=== PATIENT | male | born 1930 | race Caucasian/White ===

== ENCOUNTER 2017-02-06 13:17 | Inpatient (IN) | payer MEDICARE, BC ==
[~2017-02-06] VITALS: Ht 160 cm; Wt 105.7 kg
--- NOTE | ~2017-02-06 | ECH ---
Transthoracic Echocardiography Report (TTE) Demographics Patient Name Froylan PRYOR Date of Study 02/07/2017 Patient Number [id number] Visit Number [id number] Date of 1930 Room Number 421 Accession Number [id number] Gender Male Age 86 year(s) Referring Jorge Pepe Balance Screwhead Polisher Bebe Estrada Physician Landy Sommers MD RUST Physician Interpreting Landy Sommers MD Educational Aid Physician Supervising Ordering Physician Jorge Pepe MD, MD/P Nurse Stress Supervisor [place] Conclusions Summary Technically adequate exam. The estimated left ventricular ejection fraction is 60%. Mild concentric left ventricular hypertrophy. Diastolic assessment reveals Grade I diastolic dysfunction. The left atrium is severely dilated by LA volume index measurement. The interatrial septum appears aneurysmal. The right atrium is moderately dilated. No significant valvular abnormalities. Procedure Type of Study TTE procedure:Echo Complete SF. Procedure Date Date: 02/07/2017 Start: 01:41 PM Technical Quality: Adequate visualization Indications:Elevated Troponin, Shortness of breath, Congestive heart failure and Bradycardia. Appropriate Use Criteria: 9 Height: 65 inches Weight: 238 pounds BSA: 2.13 m Rhythm: Sinus bradycardia HR: 53 bpm BP: 143/58 mmHg M-Mode/2D Measurements LV Diastolic Dimension: 5.52 cm LV Systolic Dimension: 3.95 cm LV Septum Diastolic: 1.06 cm LV PW Diastolic: 1.08 cm AO Root Dimension: 3.06 cm Cardiac Output: 6.37 l/min LA Dimension: 4.62 cm Cardiac Index: 2.99 l/min*m RV Diastolic Dimension: 3.29 cm LA volume index: 67 ml/m LVOT: 2.03 cm LVOT VTI: 37.13 cm RV Base: 3.8 cm LV Stroke volume: 120.11 ml RV Mid: 2 cm LV Stroke volume index: 56.39 ml/m TAPSE: 3.2 cm TDI-S': 13 cm/s Doppler Measurements AV Peak Velocity: 2 m/s MV Peak E-Wave: 1.31 m/s AV Peak Gradient: 16 mmHg MV Peak A-Wave: 1.4 m/s AV Mean Gradient: 8.33 mmHg MV E/A Ratio: 0.93 LVOT Peak Velocity: 1.35 m/s MV P1/2t: 84.7 msec AV Area (Continuity):2.44 cm MV Deceleration Time: 261.1 msec MV Area (PHT): 2.6 cm E' Septal Velocity: 0.06 m/s PV Peak Velocity: 1.13 m/s E' Lateral Velocity: 0.07 m/s PV Peak Gradient: 5.11 mmHg A' Septal Velocity: 0.07 m/s RA Area: 24.12 cm Findings Left Ventricle The left ventricle is normal in size . Mild concentric left ventricular hypertrophy. Diastolic assessment reveals Grade I diastolic dysfunction. Right Ventricle Normal right ventricle structure and function. Left Atrium The left atrium is severely dilated by LA volume index measurement. The interatrial septum appears aneurysmal. There is no evidence of patent foramen ovale or atrial septal defect by color Doppler. Right Atrium The right atrium is moderately dilated. Mitral Valve Mild to moderate mitral annular calcification. Mild mitral regurgitation by color Doppler. Aortic Valve The aortic valve is mildly sclerotic. Tricuspid Valve Normal tricuspid valve structure and function. Mild tricuspid regurgitation by color Doppler. Insufficient jet to calculate pulmonary pressures. Pulmonic Valve Normal pulmonic valve structure and function. Trivial pulmonic valve regurgitation by color Doppler. Pericardial Effusion No evidence of pericardial effusion. Miscellaneous Visualized portions of the aortic root and ascending aorta appear normal in size. Pleural Effusion No evidence of pleural effusion. Signature
[~2017-02-06 13:17] MED LIST: ASA CHILDREN'S81 MG PO; ASPIRIN EC81 MG PO; BACTROBAN22 GM TP; CALTRATE-600 W600 MG PO; CLARITIN DPS10 MG PO; CVS GLUCOSAMIN PO; DAILY VALUE1 EACH PO; DELTASONE DPS10 MG PO; DOLOPHINE DPS10 MG PO; FLEET ENEMA133 ML PR; FLOMAX DPS0.4 MG PO; LASIX DPS40 MG PO; LINZESS145 MCG PO; LOVENOX DP30 MG/0.3 SQ; LYRICA25 MG PO; MAALOX DPS30 ML PO; MILK OF MAGNESI10 ML PO; MIRALAX PACKET17 GM PO; MIRALAX17 GM PO; MYCOSTATIN PWD15 GM TP; NEURONTIN DPS100 MG PO; NORCO 5-325 TA1 EACH PO; NORVASC DPS10 MG PO; OXY IR DPS5 MG PO; PEPCID DPS20 MG PO; RISPERIDONE PO; SENOKOT S1 TAB PO; SURFAK DPS240 MG PO; THERA-M1 EACH PO; TYLENOL DPS325 MG PO; ZOCOR DPS10 MG PO; ZYLOPRIM-DPS100 MG PO
--- NOTE | 2017-02-09 15:08 | CO ---
ADMIT: 02/06/2017 RM/LOC: 421 [facility] MR#: [id number] [address] [address] ROYAFroylan [address] [place] [address] Consultation SEX: M AGE: 86 : 1930 DATE OF CONSULTATION: 02/07/2017 ATTENDING PHYSICIAN: Rebecca Patel CONSULTING PHYSICIAN: Regan Bill MD REASON FOR CONSULTATION: Abnormal troponin, volume overload. HISTORY OF PRESENT ILLNESS: Mr. Pryor is a pleasant 86-year-old white male whom we are asked to consult on at the request of Dr. Patel for the problem of abnormal troponin and volume overload. [facility], was in for routine appointment. He mentioned something about chest pain. They noted an elevated troponin. Of note. He has also been more short of breath, volume overloaded. Feels like his blood pressure has been poorly controlled. He denies any evidence of near syncope. He has had a little bit of a weight gain. Denies any weight loss. Denies any fever, chills, cough, or cold symptoms. PAST MEDICAL HISTORY: Pertinent for a history of carotid disease, peripheral vascular disease, TIA, COPD, BPH, hypothyroidism, chronic renal insufficiency, and spinal stenosis. CURRENT MEDICATIONS: Include: 1. Aricept 10 at bedtime. 2. Aspirin 81 a day. 3. Catapres 0.1 b.i.d. 4. Cozaar 12.5 a day. 5. Iron 325 b.i.d. 6. Flomax 0.4 a day. 7. Lasix 40 mg a day. 8. Linzess 145 mcg at 7:30 in the morning. 9. Neurontin 300 mg t.i.d. 10.Pepcid 20 mg a day. 11.Risperdal 0.25 a day. 12.Senna 8.6 b.i.d. 13.Synthroid 0.088 daily. 14.Therapeutic multivitamin. 15.Zocor 10 at bedtime. 16.Zyloprim 100 a day. 17.Dulera. 18.Heparin b.i.d. 19.Duragesic patch. ALLERGIES: INCLUDE LISINOPRIL, MORPHINE, AND CELEBREX. FAMILY HISTORY: Reviewed. There is no premature history of coronary disease. SOCIAL HISTORY: He lives in [facility]. He is a nonsmoker. ADMIT: 02/06/2017 RM/LOC: 421 [facility] MR#: [id number] [address] [address] [place] [address] Consultation SEX: M AGE: 86 : 1930 REVIEW OF SYSTEMS: A full 10-point review of systems was obtained and deemed to be negative except the pertinently dictated in HPI. PHYSICAL EXAMINATION: Today: VITAL SIGNS: Blood pressure is 143/58 with a pulse of 53, temp 96.9, his weight is 233 pounds. GENERAL: He is a pleasant, well-nourished, well-developed white male, in no acute distress. Alert and oriented x3. NECK: Shows brisk carotid upstrokes. No JVD or bruit. CHEST: Clear. HEART: Regular. ABDOMEN: Soft. EXTREMITIES: Showed no cyanosis, clubbing, with 2+ pretibial edema. MUSCULOSKELETAL: Normal. NEUROLOGIC: Normal. SKIN: [place], warm, and dry with some venous insufficiency changes in his lower extremities. LABORATORY AND ANCILLARY DATA: Chest x-ray notes cardiomegaly with some pulmonary edema. His labs note a potassium of 5.5, chloride 112, sodium 143, BUN of 42, creatinine of 1.8. CK 53, MB of 2.4. Troponin is 0.043 was 0.056 on admission. ProBNP is 10,430. White blood cell count is 5.7 with hemoglobin of 9 and a platelet count of 120,000. EKG notes sinus bradycardia. ASSESSMENT AND PLAN: 1. Congestive heart failure, new, undetermined etiology. 2. Chronic renal insufficiency. 3. Abnormal troponin. 4. Peripheral vascular disease. 5. Chronic obstructive pulmonary disease. 6. Bradycardia. We will attempt aggressive diuresis and monitor creatinine and lytes closely. Suspect elevated troponin likely secondary to chronic renal insufficiency and volume overload. We will check an echocardiogram. Hold his clonidine to see if the heart rate increases. We will add hydralazine p.r.n. for blood pressure. Continue to monitor response to management of these chronic conditions and we will get an echocardiogram as well. Regan Bill MD/ angelic JOB #: [id number] CC: Rebecca Patel, Attending Physician Rebecca Patel, Family Physician
--- NOTE | 2017-02-10 08:02 | HP ---
ADMIT: 02/06/2017 RM/LOC: 421 [facility] MR#: [id number] [address] [place] [id number] [place], [place] [address] ROYAFroylan [address] [place] [address] History and Physical SEX: M AGE: 86 : 1930 DATE OF SERVICE: REASON FOR ADMISSION: Progressive weight gain and shortness of breath. HISTORY OF PRESENT ILLNESS: Mr. Burgess is an elderly 86-year-old white gentleman, who lives at [facility] with care through the [place]. He has a past medical history of osteoarthritis, peripheral vascular disease, carotid artery disease, TIA, COPD, BPH, hypothyroidism, chronic kidney disease, constipation, and spinal stenosis. He is allergic to Celebrex, , and lisinopril. He presented to the [place] with shortness of breath with exertion and abdominal distention, was sent to the ER at [place] for further assessment. Sodium was 142, potassium 5.2, BUN and creatinine 47 and 1.8, calcium 8.5. White count 6.0, platelet count 128,000, and hemoglobin 9.4. CPK of 50, MB of 1.8, and troponin of 0.056. His EKG showed sinus don, rate of 45. UA was clear. Chest x-ray showed cardiomegaly with bilateral pleural effusions and evidence of heart failure. He at this time is admitted for further evaluation and care. MEDICATIONS: 1. Flomax 0.4 mg daily. 2. Imodium. 3. Lasix 40 daily. 4. Linzess 145 mcg daily. 5. Lortab. 6. Acetaminophen. 7. Losartan 12.5 mg 1/2 tablet daily. 8. Topical cream of Lotrimin AF. 9. Maalox. 10.Metoprolol ER daily. 11.MiraLax muscle rub. 12.Neurontin 300 mg 3 times a day. 13.Pepcid 20 mg daily. 14.Risperdal 0.25 mg daily. 15.Robitussin DM. 16.Aspirin daily. 17.Clonidine 0.1 mg in the morning. 18.Fentanyl patch. 19.Ferrous sulfate. REVIEW OF SYSTEMS: He denies chest pain, describes increasing shortness of breath, decreased activity tolerance, dyspnea, and weight gain. He does have significant increase in bruising. He denies any abdominal pain and abdominal discomfort, but describes abdominal fullness secondary to edema and is having progressive lower extremity edema. PHYSICAL EXAMINATION: GENERAL: He is alert. He is hypertensive. VITAL SIGNS: Systolic blood pressures in the 170s, his heart rate is in the 40s, bradycardic. LUNGS: Clear, but diminished to auscultation. ADMIT: 02/06/2017 RM/LOC: 421 [facility] MR#: [id number] [address] [address] Froylan BURGESS [address] [place] [address] History and Physical SEX: M AGE: 86 : 1930 ABDOMEN: Obese, soft. Positive bowel sounds present. 2+ to 3+ pitting edema, lower extremities. ASSESSMENT AND PLAN: Admission of an elderly white gentleman with vague chest pain, slight bump in troponin, known cardiomegaly. We will check serial cardiac enzymes and echocardiogram. Bradycardic heart rate. We will check thyroid function. Increasing shortness of breath, weight gain, and evidence of heart failure. Concerns about possible [place], sleep apnea, and hypoxia. Evidence of renal insufficiency. Creatinine in 2015 ranged between 1.48 to 2.33. Evidence of normocytic anemia. He was given IV Lasix in the Emergency Room, he is diuresing. He feels a bit better. We will ask Cardiology to see for his heart failure as well as mild elevation in troponin. We will resume his home medications after my review. Start him on heparin subcu b.i.d. Get an ultrasound of his abdomen to include his kidney and bladder. In addition, echocardiogram as per his family's DNR/DNI status, I did discuss this with the patient himself, he agreed. We will get daily weights. We will check a BNP as well as his thyroid function tonight and change his diet to a renal diet. His prognosis is guarded. We will continue close followup. We will continue to follow closely. Rebecca Patel MD/ angelic JOB #: [id number] CC: Rebecca Patel, Attending Physician Rebecca Patel, Family Physician
--- NOTE | 2017-02-12 08:44 | ER ---
ADMIT: 02/06/2017 RM/LOC: 421 [facility] MR#: [id number] [address] [address] Froylan PRYOR [address] [address] [place] [address] Emergency Room Report SEX: M AGE: 86 : 1930 DATE: 02/06/2017 TIME: 1317 hours. Please refer to my T-sheet for complete H and P. Briefly, patient is an 86-year-old, sent over from the [place]. He was in for routine appointment when he complained of some chest pain. They did a big workup over there, noticed some elevated troponin. He says he was in pain, they transferred him over here for evaluation. He was just in for routine appointment, but he has noticed a little more shortness of breath. PHYSICAL EXAMINATION: VITAL SIGNS: His blood pressure 175/50, pulse 51, respirations 16, temp 96.2, and sat 95% GENERAL: No acute distress. HEENT: Grossly normal. LUNGS: Clear. HEART: Slightly bradycardic, regular. ABDOMEN: Soft, mildly tender left upper quadrant and the left chest. EXTREMITIES: 3+ edema. NEUROLOGIC: Alert and oriented, nonfocal. EMERGENCY DEPARTMENT COURSE: Chest x-ray revealed cardiomegaly with congestive heart failure. CBC was normal except hemoglobin 9.4. Chemistries normal except potassium 5.2, BUN 42, glucose 103, and creatinine 1.8. His troponin here was 0.056. EKG was sinus rhythm, although bradycardic at 49 no changes. We gave him 4 aspirin and Lasix. [facility] I then talked to Dr. Patel who will admit to the hospital. ASSESSMENT: 1. Chest pain. 2. Elevated troponin. 3. Congestive heart failure. PLAN: Admit to the hospital. Simba Solano MD/ angelic SIN: 02/06/2017 14:45:34 JOB #: [id number] CC: Rebecca Patel MD, Attending Physician Rebecca Patel MD, Family Physician
--- NOTE | 2017-02-13 11:04 | CO ---
ADMIT: 02/09/2017 RM/LOC: 421 [facility] MR#: [id number] [address] [address] Froylan PRYOR [facility] [place] [address] Consultation SEX: M AGE: 86 : 1930 DATE OF CONSULTATION: 02/09/2017 ATTENDING PHYSICIAN: Rebecca Patel CONSULTING PHYSICIAN: Elise Mcdermott MD REASON FOR CONSULTATION: Chronic kidney disease. HISTORY OF PRESENT ILLNESS: The patient is an 86-year-old gentleman, who is normally cared for by at the [place]. He was admitted to the hospital from the [facility] because of chest pain and concern of volume overload. He was evaluated by Cardiology and underwent some diuresis. His symptoms are better. He is pleasant at this time and offers no direct complaints. He notes that his breathing is much fair. He denies any urinary complaints, although he does note that he goes to bathroom only twice or thrice a day. Denies any symptoms of prostatism, otherwise. Denies any orthopnea or PND. He notes that his lower extremity edema has been a chronic issue. Otherwise, he denies any NSAIDs, fksl-gbd-kocplae medications, or herbal supplements. REVIEW OF SYSTEMS: A complete review of systems is negative in detail except as mentioned in the history of present illness. PAST MEDICAL HISTORY: 1. Hypertension. 2. Peripheral vascular disease. 3. Carotid artery stenosis. 4. TIA. 5. COPD. 6. BPH. 7. Hypothyroidism. 8. CKD stage III/IV. 9. Spinal stenosis. MEDICATIONS: Reviewed in the chart. ALLERGIES: LISINOPRIL, MORPHINE, AND CELEBREX. FAMILY HISTORY: His grandson has chronic kidney disease for which he required dialysis and has eventually had a transplant. Etiology is not known to him. SOCIAL HISTORY: He lives in a intermediate. He does not smoke, and he does not use any tobacco, alcohol, or recreational drugs. His is alive and lives at home. PHYSICAL EXAMINATION: VITAL SIGNS: Temperature 98.3 Fahrenheit, pulse 74, blood pressure 172/40. GENERAL: He is comfortable. Head is nontraumatic and normocephalic. Pale conjunctivae. Dry mucosa. CHEST: Clear to auscultation CVS: Regular rhythm. S1, S2 heard. No rubs, ADMIT: 02/09/2017 RM/LOC: 421 [facility] MR#: [id number] [address] [address] Froylan PRYOR [facility] [place] [address] Consultation SEX: M AGE: 86 : 1930 murmurs, or gallops. ABDOMEN: Soft and nontender. EXTREMITIES: 1 to 2+ edema. Lower extremities, his legs are wrapped in a bandage. SKIN: No rash or nodules. NEUROLOGIC: He is alert, cranial nerves II through XII are grossly normal. LABORATORY DATA: 1. Reviewed. BMP with sodium 142, potassium 4.8, creatinine 2.0, hemoglobin is 9.0, calcium 8.4, 24-hour urine protein was 1125 mg. 2. Renal ultrasound of the right kidney 10.1 cm, left kidney 10.1 cm. He has multiple renal cysts. ASSESSMENT AND PLAN: 1. Chronic kidney disease stage III/IV-proteinuric. Evaluate him for paraproteinemia with an SPEP and serum free light chains. 2. Hypertension/edema-agree with diuretics for volume and blood pressure management. Check labs to monitor medication toxicity. 3. Anemia-evaluate with iron studies, vitamin B12, and folate. Thank you for this consult. Elise Mcdermott MD/ angelic JOB #: [id number] CC: Rebecca Patel, Attending Physician Rebecca Patel, Family Physician
--- NOTE | 2017-02-18 08:05 | DS ---
ADMIT: 02/09/2017 RM/LOC: 421 [facility] MR#: [id number] [address] [address] [facility] [place] [address] General Discharge Summary SEX: M AGE: 86 : 1930 ADMISSION DATE: 02/09/2017 DISCHARGE DATE: 02/13/2017 DISCHARGE DIAGNOSES: 1. Diastolic heart failure. 2. Renal insufficiency. 3. Obesity. 4. Peripheral vascular disease. 5. Chronic obstructive pulmonary disease. 6. Hypothyroidism. 7. Spinal stenosis. HISTORY OF PRESENT ILLNESS: Well documented in his H and P. LABORATORY AND RADIOGRAPHIC ASSESSMENT: During this hospitalization is as follows: On admission, his white count was 5.7, hemoglobin 9.0, and platelet count of a 120,000. Discharge white count was 4.8, hemoglobin 8.6, and platelet count 156,000. Urinalysis was hazy, 2+ protein, 2+ blood, 3+ leukocytes. His serum sodium on admission was 143, potassium 5.5, BUN and creatinine 42 and 1.8. His HDL cholesterol was 46. Iron level 44. Magnesium 2.1. His troponin was 0.056 and 0.046. B12 was 512. Folic acid 14.2. Ferritin 153. Haptoglobin 161. IgG 394, IgA 279, IgM 40. TSH of 2.20. His 24-hour urine protein showed a urine protein of 1125 mg. TSP with pattern showed hypoalbuminemia. No M protein band identified. Her creatinine level was 33.2. Wimer 6.75 and lambda 4.40, both elevated. Urine cultures, no growth. Chest x-ray, on admission, cardiomegaly with mild heart failure. Skeletal survey showed degenerative arthritis, osteopenia, left distal humeral ovoid osteolytic area, and severe degenerative arthritis. Ultrasound of the abdomen showed cholelithiasis without definite evidence of acute cholecystitis, mild hepatomegaly, multiple bilateral renal cysts. Ultrasound of his lower extremity showed no evidence of deep venous thrombosis. His overnight oximetry showed evidence of hypoxia with SaO2 less than 90% of the time, 17% of the time. Echocardiogram showed estimated left ventricular ejection fraction 60%. Mild concentric left ventricular hypertrophy. Diastolic assessment reveals grade 1 diastolic dysfunction, left atrium is severely dilated. Intra-atrial septal appears aneurysmal. Right atrium is aiyh-wm-myinmegnnv dilated. No significant valvular abnormalities. EKG on admission showed sinus don with borderline first-degree block. Heart rate of 49 beats per minute. Repeat EKG showed sinus don with borderline first- degree block. Heart rate 59. HOSPITAL COURSE: This is an elderly white gentleman, [facility], who is currently living at the [facility], was admitted to [facility] with evidence of increasing shortness of breath and peripheral edema. No weight gain. Evidence of congestive heart failure, diastolic dysfunction. Has a history of known renal insufficiency with creatinine of 1.8. He was initially admitted to [facility]. We did ask Cardiology to see and assist in his care. He was started on heparin as DVT prophylaxis. As per his request, he is a DNR/DNI. His ADMIT: 02/09/2017 RM/LOC: 421 [facility] MR#: [id number] [address] [place] [address] Froylan PRYOR [address] [place] [address] General Discharge Summary SEX: M AGE: 86 : 1930 medications were reviewed and continued as appropriate. He was started on IV Lasix as well as hydralazine for his hypertension. His bradycardic heart rate did improve. He continued on very close assessment with diuresis. Evidence of ultrasound did show evidence of cholelithiasis, but he is asymptomatic. We did ask Dr. Mcdermott to see as his creatinine was 2.0. We did remove his Suggs catheter edema where Physical Therapy and Occupational Therapy was asked to see and assist in his care. He continued to diurese very slowly with improvement in his overall symptoms. Trend oximetry was performed, which showed evidence of desaturation at night and he was educated that he needs to wear the oxygen that he has at night on a daily basis. He was started on Plavix therapy. Cardiology feels that after diuresis that he should have probably a stress test done in the outpatient setting. He was given Venofer 300 mg IV x2 as per Dr. Mcdermott as well as Aricept for treatment of his iron- deficiency anemia, which was felt was related to his renal disease. He continued to have slow, but sure improvement and was subsequently discharged back to the [place] setting. He will have outpatient followup with Cardiology and Nephrology through the [place] system as well as we did send his laboratory and radiographic assessment to Dr. Mon, who is his primary care physician who is caring for him at the [facility]. He was seen and evaluated by as well during this hospitalization by Hematology and he was felt not at this time to have any evidence of multiple myeloma and evaluation of his anemia. He was discharged in stable condition. His long-term prognosis is guarded. Rebecca Patel MD/ angelic JOB #: [id number] CC: Rebceca Patel MD, Attending Physician Rebecca Patel MD, Family Physician . [facility]
--- NOTE | 2017-03-11 08:15 | CO ---
ADMIT: 02/09/2017 RM/LOC: [address] [facility] MR#: [id number] [address] [id number] Fro[address] PRYOR [address] [facility] [place] [id number] Consultation SEX: M AGE: 86 : 1930 DATE OF CONSULTATION: 02/12/2017 ATTENDING PHYSICIAN: Rebecca Patel MD CONSULTING PHYSICIAN: Stanley Enriquez MD REQUESTING PHYSICIAN: Rebecca Patel MD REASON FOR CONSULTATION: Gammopathy. HISTORY OF PRESENT ILLNESS: The patient is an 86-year-old male, who is [facility] who presents with shortness of breath and some abdominal distention and was sent to the emergency room for further evaluation. He had evidence of active heart failure as well as some blood count abnormalities, and was therefore admitted for further care. With regard to my involvement, he has been found to be anemic with hemoglobin of 8.9 on admission. He also has acute renal insufficiency with creatinine of 2, but looking back, he has had significant fluctuations over the years and his creatinine anywhere from 1 to 3. His baseline probably is around 1.5. His calcium level is normal at 8.1. His albumin is low at 2.6. He did have light chains drawn, which showed kappa that was high at 6.7, lambda was high at 4.4, but ratio was normal at 1.5. Protein electrophoresis showed no M protein. Immunoglobulins have not yet been performed. Iron studies showed a saturation of 25%, and a ferritin of 153. B12 was normal at 512. Folate was normal at 14. The patient has no focal bone pain. He has no other symptoms to suggest myeloma. He states that he is known about his kidney disease and anemia for a long time. He has not been evaluated in the past by any Oncologist. He has no prior history of any active malignancies. He is being evaluated by Cardiology and Nephrology as well during this hospital stay. PAST MEDICAL HISTORY: BPH, history of heart disease, hypertension, hyperlipidemia, chronic pain, history of iron deficiency. ALLERGIES TO MEDICATIONS: Reviewed in the chart. SOCIAL HISTORY: The patient has a very supportive family. He lives in [place] for his permanent address, but he is currently at a alf in [place]. He is currently a nonsmoker. FAMILY HISTORY: He is not aware of any recurrent hereditary malignancies including any myeloma in the family. REVIEW OF SYSTEMS: See HPI. Otherwise, complete review of systems was obtained and is negative. PHYSICAL EXAMINATION: VITAL SIGNS: Temperature 98, pulse 71, respirations 14, blood pressure 150/52. GENERAL: He is in no acute distress and provides me good history. He is alert and oriented. HEENT: Mucous membranes are moist. No oral lesions are ADMIT: 02/09/2017 RM/LOC: [address] [facility] MR#: [id number] [place] [id number] [address] PRYOR [address] [place] [address] Consultation SEX: M AGE: 86 : 1930 seen. Extraocular muscles are intact. Pupils are reacting and symmetrical. NECK: Without adenopathy or JVD. HEART: Regular rate and rhythm without murmur. LUNGS: Clear to auscultation bilaterally without any crackles or wheezes. ABDOMEN: Soft, nontender, and nondistended with positive bowel sounds throughout. No organomegaly is appreciated. EXTREMITIES: He has 1+ edema. No rashes, lesions, or adenopathy seen. LABORATORY DATA: See HPI. IMPRESSION: 1. Elevated kappa and lambda light chains, more suggestive of a polyclonal gammopathy. 2. Chronic renal insufficiency. 3. Anemia of chronic disease. RECOMMENDATIONS: I reviewed all of his labs and I believe that this is probably not a monoclonal gammopathy such as a myeloma or other type of protein malignancy given that both of his kappa and lambda are elevated, this is probably more of an inflammatory condition. His lack of an M protein also supports that this is likely benign. His calcium level is normal. His creatinine seems to be elevated from a number of different factors. His anemia is probably longstanding and from his renal insufficiency and chronic inflammatory condition. I will check a bone survey to make sure there are not any obvious lytic bone lesions. I will also check quantitative immunoglobulins. After these are known, we will decide if he needs any closer followup as an outpatient or perhaps a bone marrow biopsy. I appreciate this consultation. Stanley Enriquez MD/ angelic JOB #: [id number] CC: Rebecca Patel MD, Attending Physician Rebecca Patel MD, Family Physician
== END 2017-02-13 11:00 | DRG 291 ==
LOC: ER 13:17 → 4PCU 14:45
PROVIDERS: ADMIT Internal Medicine
DX: I13.0 Hypertensive heart and chronic kidney disease with heart failure and stage 1 through stage 4 chronic kidney disease, or unspecified chronic kidney disease (principal); I50.31 Acute diastolic (congestive) heart failure; N18.4 Chronic kidney disease, stage 4 (severe); J44.9 Chronic obstructive pulmonary disease, unspecified; R00.1 Bradycardia, unspecified; Z68.41 Body mass index [BMI] 40.0-44.9, adult; M19.90 Unspecified osteoarthritis, unspecified site; E66.9 Obesity, unspecified; M85.80 Other specified disorders of bone density and structure, unspecified site; R09.02 Hypoxemia; K80.20 Calculus of gallbladder without cholecystitis without obstruction; I44.0 Atrioventricular block, first degree; I65.29 Occlusion and stenosis of unspecified carotid artery; I73.9 Peripheral vascular disease, unspecified; N28.1 Cyst of kidney, acquired; D63.1 Anemia in chronic kidney disease; N40.0 Benign prostatic hyperplasia without lower urinary tract symptoms; I87.2 Venous insufficiency (chronic) (peripheral); E03.9 Hypothyroidism, unspecified; K59.00 Constipation, unspecified; M48.00 Spinal stenosis, site unspecified; Z79.82 Long term (current) use of aspirin; Z66 Do not resuscitate; Z86.73 Personal history of transient ischemic attack (TIA), and cerebral infarction without residual deficits